=== PATIENT | female | born 1955 | race Caucasian/White ===

== ENCOUNTER → 2019-03-08 14:22 | Outpatient (CLI) | payer MEDICARE, SELFPAY ==
--- NOTE | 2019-03-08 14:24 | RAD_ITS ---
STUDY: X-RAY - LEFT TIBIA AND FIBULA REASON FOR EXAM: Left knee pain, recent fall. TECHNIQUE: 2 view(s) of the tibia and fibula were obtained. COMPARISON: Radiographs of the left knee 01/06/2016. FINDINGS: Normal visualized tibia. Normal visualized fibula. There is arthrosis of the left knee, increased since the prior study. There is soft tissue swelling. RAD/Tibia & Fibula 2 Views IMPRESSION: Left knee arthrosis. Joint effusion. Electronically Signed: Christiano Tidwell MD at 15:21 EDT Tel , Service support ,
--- NOTE | 2019-03-08 14:24 | RAD_ITS ---
STUDY: X-RAY - LEFT FEMUR REASON FOR STUDY: Knee pain, recent fall. TECHNIQUE: 2 view(s) of the femur. COMPARISON: Radiographs of the left knee 01/06/2016. FINDINGS: Normal visualized femur. There is tricompartmental arthrosis of the left knee, increased since the prior study. There is arthrosis with joint space narrowing of the superior medial left hip. There is vascular calcification. There is soft tissue swelling. RAD/Femur Min 2 Views IMPRESSION: Arthrosis of the left knee and left hip. Soft tissue swelling. Electronically Signed: Christiano Tidwell MD at 15:22 EDT Tel , Service support ,
== END ==
PROVIDERS: Family Provider Internal Medicine; PCP Internal Medicine; Referring Provider Orthopaedic Surgery; Visit Provider Orthopaedic Surgery
DX: S89.92XA Unspecified injury of left lower leg, initial encounter (principal)
CPT/HCPCS: 73552; 73590